=== PATIENT | female | born 1955 | race Caucasian/White ===

== ENCOUNTER → 2019-01-23 | Outpatient (CLI) | payer MEDICARE, OTHER ==
[~2019-01-23] MED LIST: zolpidem PO
== END | disposition home or self-care (01) ==
LOC: STAR 12:25
PROVIDERS: ATTEND Obstetrics & Gynecology Female Pelvic Medicine and Reconstructive Surgery
DX: Z01.818 Encounter for other preprocedural examination (principal); N39.3 Stress incontinence (female) (male); I44.0 Atrioventricular block, first degree; R94.31 Abnormal electrocardiogram [ECG] [EKG]
CPT/HCPCS: 93005

== ENCOUNTER 2019-01-27 09:05 | Day surgery (SDC) | payer MEDICARE, OTHER ==
[~2019-01-27] VITALS: Ht 170.2 cm; Wt 75.6 kg
[~2019-01-27 09:05] MED LIST changes: +BUPIVACAINE/PF 0.25% ONE; +EPINEPHRINE 1 MG/ML, 1ML ONE; +NEOMY/POLYMYXIN B GU IRR. 1 ML ONE
[2019-01-27 09:37] VITALS: BP 142/80
[2019-01-27] MEDS ORDERED: LACTATED RINGERS 1,000 ML IV SCH (10:01)
[2019-01-27] MEDS ORDERED: MIDAZOLAM 1 MG/ML, 2ML ONE (11:04)
[2019-01-27] MEDS ORDERED: FENTANYL PF 250 MCG/5ML ONE (11:04)
[2019-01-27] MEDS ORDERED: ONDANSETRON 2MG/ML, 2ML IV PRN ×2 (11:30→20:00)
[2019-01-27] MEDS ORDERED: PROMETHAZINE 25 MG SUPP PR PRN (11:30)
[2019-01-27] MEDS ORDERED: PROMETHAZINE 25 MG/ML, 1ML IV PRN (11:30)
[2019-01-27] MEDS ORDERED: HYDROcodone/APAP 7.5-325MG/15ML UDC PO PRN (11:30)
[2019-01-27] MEDS ORDERED: ACETAMINOPHEN 325 MG TABLET PO PRN (11:30)
[2019-01-27] MEDS ORDERED: ONDANSETRON ODT 8 MG PO PRN (11:30)
[2019-01-27] MEDS ORDERED: OXYcodone 5 MG/5 ML ORAL.SOL UDC PO PRN (11:30)
[2019-01-27] MEDS ORDERED: DIAZEPAM 5 MG/ML, 2ML IVPush PRN (11:30)
[2019-01-27] MEDS ORDERED: LORazepam 2 MG/ML, 1ML IVPush PRN (11:30)
[2019-01-27] MEDS ORDERED: BUPIVACAINE/PF-EPI 0.25% 1:200K INFIL ONE (11:43)
[2019-01-27] MEDS ORDERED: DEXAMETHASONE 4 MG/ML, 1ML ONE (12:02)
[2019-01-27] MEDS ORDERED: ROCURONIUM 10MG/ML,5ML ONE (12:02)
[2019-01-27] MEDS ORDERED: CEFAZOLIN 1,000 MG ONE (12:02)
[2019-01-27] MEDS ORDERED: GLYCOPYRROLATE 0.2MG/1ML, 5ML ONE (12:02)
[2019-01-27] MEDS ORDERED: NEOSTIGMINE 1 MG/ML, 10ML ONE (12:02)
[2019-01-27] MEDS ORDERED: LIDOCAINE-MPF 2% ,5ML ONE (12:02)
[2019-01-27] MEDS ORDERED: ONDANSETRON 2MG/ML, 2ML ONE (12:02)
[2019-01-27] MEDS ORDERED: SUCCINYLCHOLINE 20 MG/ML, 10ML ONE (12:02)
[2019-01-27] MEDS ORDERED: PROPOFOL 10 MG/ML, 20ML ONE (12:02)
[2019-01-27] MEDS ORDERED: OXYcodone 5 MG/5 ML ORAL.SOL UDC ONE ×2 (13:06→13:54)
[2019-01-27] MEDS ORDERED: FENTANYL PF 100 MCG/2ML ONE (13:06)
[2019-01-27] MEDS ORDERED: ACETAMINOPHEN 650 MG/20.3 ML UDC ONE (13:06)
[2019-01-27] MEDS: FENTANYL PF 100 MCG/2ML IV PRN ×2 (13:08→13:19)
[2019-01-27] MEDS ORDERED: HYDROmorphone 2 MG/ML, 1ML ONE (13:22)
[2019-01-27] MEDS: HYDROmorphone 2 MG/ML, 1ML IVPush PRN ×2 (13:30→13:41)
[2019-01-27] MEDS ORDERED: OXYcodone/APAP 5/325MG TABLET PO PRN ×2 (16:00→20:00)
[2019-01-27] MEDS ORDERED: METOCLOPRAMIDE 5 MG/ML, 2ML ONE (18:11)
[2019-01-27] MEDS ORDERED: METOCLOPRAMIDE 5 MG/ML, 2ML IVPush ONE (18:30)
[2019-01-27] MEDS ORDERED: KETOROLAC 30 MG/1 ML IVPush PRN (18:30)
[2019-01-27] MEDS ORDERED: IBUPROFEN 600 MG TABLET PO PRN (20:00)
[2019-01-27] MEDS ORDERED: HYDROmorphone 2 MG/ML, 1ML IV PRN (20:00)
[2019-01-28] MEDS ORDERED: KETOROLAC 30 MG/1 ML IV PRN (00:15)
[2019-01-31] MEDS ORDERED: PERCOCET (20:00)
== END 2019-01-27 22:25 | disposition home or self-care (01) ==
LOC: OUT 09:05 → 4NOR 19:20 → OUT 22:25
PROVIDERS: ATTEND Obstetrics & Gynecology Female Pelvic Medicine and Reconstructive Surgery
DX: N81.3 Complete uterovaginal prolapse (principal); N39.46 Mixed incontinence; J45.909 Unspecified asthma, uncomplicated; Z98.890 Other specified postprocedural states; Z88.8 Allergy status to other drugs, medicaments and biological substances
CPT/HCPCS: 57265; 57282; 57288; 58552; 88305; C1771; J0171; J0330; J0690; J1100; J1170; J1885; J2250; J2405; J2704; J2710; J2765; J3010; J3490; J7120; G0378

== ENCOUNTER 2019-10-22 19:41 | Emergency (ER) | payer MEDICARE ==
[~2019-10-22] VITALS: Ht 170.2 cm; Wt 80.7 kg
[~2019-10-22 19:41] MED LIST changes: -BUPIVACAINE/PF 0.25% ONE; -EPINEPHRINE 1 MG/ML, 1ML ONE; -NEOMY/POLYMYXIN B GU IRR. 1 ML ONE; +PERCOCET
[2019-10-22 20:14] VITALS: BP 141/61
--- NOTE | 2019-10-22 20:15 | NUR ---
PT PRESENTING TO ER FOR INTERMITTENT CP X1 WEEK WITH SOB. CP REPRODUCABLE, SOB REPORTED WORSE AT NIGHT WITH COUGH. SEEN AT EKG NORMAL BUT SENT FOR TROP LAB DRAW. CONNECTED TO ALL MONITORING, VSS AT THIS TIME. AT BEDSIDE. CALL LIGHT WITHIN REACH
[2019-10-22] MEDS ORDERED: KETOROLAC 30 MG/1 ML ONE (20:19)
--- NOTE | 2019-10-22 20:28 | NUR ---
LABS COLLECTED, RAD COMPLETED, PT MEDICATED PER MAR FOR PAIN. AT BEDSIDE. CALL LIGHT WITHIN REACH
[2019-10-22] MEDS ORDERED: KETOROLAC 30 MG/1 ML IM ONE (20:30)
[2019-10-22 20:37] LABS: BASOPHILS # (AUTO) 0.02 x10^3/uL (0-0.1); BASOPHILS % (AUTO) 0 % (0-1); EOSINOPHILS # (AUTO) 0.02 x10^3/uL (0-0.4); EOSINOPHILS % (AUTO) 0 % (1-7); LYMPHOCYTES # (AUTO) 1.57 x10^3/uL (1-3.4); LYMPHOCYTES % (AUTO) 23 % (22-44); MD NO; MEAN CORPUSCULAR HEMOGLOBIN 29.7 pg (27.0-34.8); MEAN CORPUSCULAR HGB CONC 33.2 g/dL (32.4-35.8); MEAN CORPUSCULAR VOLUME 89.3 fL (80-100); MEAN PLATELET VOLUME 7.8 fL (7.4-10.4); MONOCYTES # (AUTO) 0.42 x10^3/uL (0.2-0.8); MONOCYTES % (AUTO) 6 % (2-9); NEUTROPHILS # (AUTO) 4.94 x10^3/uL (1.8-6.8); NEUTROPHILS % (AUTO) 71 % (42-75); PLATELET COUNT 329 x10^3/uL (130-400); RED BLOOD COUNT 4.31 x10^6/uL (3.82-5.3); RED CELL DISTRIBUTION WIDTH 14.2 % (9.6-15.2)
[2019-10-22 20:48] LABS: ALBUMIN 3.9 g/dL (3.4-5.0); ANION GAP 6 mmol/L (5-15); C-REACTIVE PROTEIN, QUANT 0.04 mg/dL (0.02-0.49); CALCIUM 8.8 mg/dL (8.5-10.1); CHLORIDE 109 mmol/L (98-107); CREATININE 0.74 mg/dL (0.55-1.02)
[2019-10-22 20:51] LABS: TROPONIN I < 0.015 ng/mL (0.000-0.045)
--- NOTE | 2019-10-22 21:04 | NUR ---
ALL RESULTS BACK AT THIS TIME, CHART UP FOR RECHECK
--- NOTE | 2019-10-22 21:18 | NUR ---
REPORT RECEIVED FROM LINWOOD GRANADOS RN. ASSUMED CARE OF PT. DR. PEDRO AT BEDSIDE UPDATING PT ON POC. PT TO BE DISCHARGED
--- NOTE | 2019-10-22 21:42 | NUR ---
Patient/Caregiver given discharge instructions and they have confirmed that they understand the instructions. Patient ambulatory with steady gait.
== END 2019-10-22 21:44 | disposition home or self-care (01) ==
LOC: ED 21:40
DX: R07.2 Precordial pain (principal); M94.0 Chondrocostal junction syndrome [Tietze]; Z90.89 Acquired absence of other organs; Z90.710 Acquired absence of both cervix and uterus
CPT/HCPCS: 36415; 71045; 80048; 82040; 84484; 85025; 86140; 93005; 96372; 99285; J1885

== ENCOUNTER 2021-01-10 16:04 | Emergency (ER) | payer MEDICARE ==
[~2021-01-10] VITALS: Ht 170.2 cm; Wt 73.0 kg
--- NOTE | 2021-01-10 16:45 | NUR ---
TO [facility] FROM LOBBY
[2021-01-10 17:06] VITALS: BP 137/59
--- NOTE | 2021-01-10 17:06 | NUR ---
HUSSAIN YOUNG AT BEDSIDE, XRAY RESULTS REVIEWED AND POC DISCUSSED.
--- NOTE | 2021-01-10 17:38 | NUR ---
Patient/Caregiver given discharge instructions and they have confirmed that they understand the instructions. Patient ambulatory with use of crutches. NAD, all questions answered appropriately, denies additional needs at this time. No personal belongings left in room after discharge.
--- NOTE | 2021-01-10 18:03 | NUR ---
PT WAS UNABLE TO DEMOSTRATE SAFE USE OF CRUTCHES. PT FITTED FOR WALKER, INSTRUCTION GIVEN AND PT GAVE APPROPRIATE RETURN DEMONSTRATION OF SAFE AMBULATION USING WALKER.
== END 2021-01-10 18:20 | disposition home or self-care (01) ==
LOC: ED 16:34
DX: S83.92XA Sprain of unspecified site of left knee, initial encounter (principal); X50.1XXA Overexertion from prolonged static or awkward postures, initial encounter; Y93.89 Activity, other specified; Y92.009 Unspecified place in unspecified non-institutional (private) residence as the place of occurrence of the external cause; Y99.8 Other external cause status
CPT/HCPCS: 99283